=== PATIENT | female | born 1970 | race Caucasian/White ===

== ENCOUNTER 2021-06-14 22:53 | Observation (INO) | payer MEDICAID ==
[~2021-06-14] VITALS: Ht 154.9 cm; Wt 92.4 kg
[2021-06-15] MEDS ORDERED: ACETAMINOPHEN 500 MG TAB (TYLENOL) PO PRN (02:45)
[2021-06-15] MEDS ORDERED: clonazePAM 0.5 MG (KlonoPIN) TAB PO ONE (02:45)
[2021-06-15] MEDS ORDERED: ONDANSETRON 4 MG/2 ML (SDV) Z0FRAN ONE (08:44)
[2021-06-15] MEDS ORDERED: clonazePAM 0.5 MG (KlonoPIN) TAB PO SCH (09:00)
[2021-06-15] MEDS ORDERED: meTOproloL SUCCINATE 50 MG (TOPROL XL) TAB PO SCH (09:00)
[2021-06-15] MEDS ORDERED: DIVALPROEX 250 MG DELAYED RELEASE (DEPAKOTE) TAB PO SCH ×2 (09:00→21:00)
[2021-06-15] MEDS ORDERED: PANTOPRAZOLE 40 MG (PROTONIX) TAB PO SCH (09:00)
[2021-06-15] MEDS ORDERED: ASPIRIN E.C. 81 MG (ECOTRIN) TAB PO SCH (09:00)
[2021-06-15] MEDS ORDERED: ONDANSETRON 4 MG/2 ML (SDV) Z0FRAN IV PRN (10:15)
[2021-06-15] MEDS ORDERED: ONDANSETRON 4 MG (ZOFRAN) ORAL DISSOLVE TAB PO PRN (10:15)
[2021-06-15] MEDS ORDERED: ANTACID SUSP 30 ML UDC (MYLANTA) PO PRN (10:15)
[2021-06-15] MEDS ORDERED: MELATONIN 3 MG TABLET PO PRN (10:15)
[2021-06-15] MEDS ORDERED: diphenhydrAMINE 25 MG TAB (BENADRYL) PO PRN (10:15)
[2021-06-15] MEDS ORDERED: polyethylene glycoL POWDER 17 GM (MIRALAX) PACK PO PRN (10:15)
[2021-06-15] MEDS: SUCRALFATE 1 GM (CARAFATE) TAB PO SCH ×2 (11:27→19:13)
[2021-06-15] MEDS ORDERED: LORA10TA7 PO (14:10)
[2021-06-15] MEDS ORDERED: ACET325C7 PO (14:10)
[2021-06-15] MEDS ORDERED: NYST1POW22 TOP (14:10)
[2021-06-15] MEDS ORDERED: DOCU100C37 PO (14:10)
[2021-06-15] MEDS ORDERED: VENL75CA93 PO (14:10)
[2021-06-15] MEDS ORDERED: DIVA-21 PO (14:10)
[2021-06-15] MEDS ORDERED: OLAN20TA34 PO (14:10)
[2021-06-15] MEDS ORDERED: MAGN400O7 PO (14:10)
[2021-06-15] MEDS ORDERED: MAG-86 PO (14:10)
[2021-06-15] MEDS ORDERED: CLON0.5T4 PO (14:10)
[2021-06-15] MEDS ORDERED: BISA10SU8 RC (14:10)
[2021-06-15] MEDS ORDERED: DIVA250T PO (14:10)
[2021-06-15] MEDS ORDERED: [UNRECOGNIZED DRUG - CODE] PO (14:10)
[2021-06-15] MEDS ORDERED: MELO15TA39 PO (14:10)
[2021-06-15] MEDS ORDERED: POTA10TA37 PO (14:10)
[2021-06-15] MEDS ORDERED: FURO20TA4 PO (14:10)
[2021-06-15] MEDS ORDERED: LEVO150T6 PO (14:15)
--- NOTE | 2021-06-15 14:59 | History & Physical-Hospitalist ---
History of Present Illness HPI/Chief Complaint Kirsty Quezada is a 50 year old female with PMH schizophrenia, autism, hearing impaired, hypothyroidsism, seizure disorder, who presented with chest pain. She is currently having chest pain upon my examination. She has just finished eating breatkfast. She also feels short of breath. She feels nauseous. She is not having any fevers or cough. Source: patient Exam Limitations: physical impairment (hearing impaired) Date Seen 06/15/21 Time Seen by a Provider: 08:35 Attending Physician Mk Suarez MD PCP No,Local Physician Referring Physician Date of Admission Jun 15, 2021 at 01:59 Home Medications & Allergies Home Medications Reviewed patient Home Medication Reconciliation performed by pharmacy medication reconciliations engine test cell technician and/or nursing. Patients Allergies have been reviewed. Allergies Allergies Coded Allergies azithromycin (Verified Allergy, Unknown, 06/15/21) lithium (Verified Allergy, Unknown, 06/15/21) Past Cukkuuu-Wxnwwg-Bwhigz Hx Patient Social History Tobacco Use?: No Smoking Status: Never a Smoker Smokeless Tobacco Frequency: Never a User Use of E-Cig and/or Vaping dev: No Substance use?: No Alcohol Use?: No Pt feels they are or have been: Unable to obtain Current Status Advance Directives: Unable to obtain Communicates: Gestures, Points Preferred Spoken Language: Danish Sensory deficits: Speech impairment Past Medical History Seizure Disorder Hypothyroidsim Schizophrenia Family Medical History No Pertinent Family Hx Review of Systems Constitutional: no symptoms reported EENTM: no symptoms reported Respiratory: short of breath Cardiovascular: chest pain Gastrointestinal: nausea Genitourinary: no symptoms reported Musculoskeletal: no symptoms reported Skin: no symptoms reported Psychiatric/Neurological: No Symptoms Reported Physical Exam Physical Exam Vital Signs Vital Signs - First Documented 06/15/21 06/15/21 06/15/21 02:00 02:03 07:41 Temp 36.3 Pulse 91 Resp 18 B/P (MAP) 143/103 Pulse Ox 98 O2 Delivery Room Air Capillary Refill : Height, Weight, BMI Height: '" Weight: lbs. oz. kg; 38.50 BMI Method: General Appearance: No Apparent Distress, Anxious, Obese HEENT: PERRL/EOMI, Pharynx Normal Neck: Normal Inspection, Supple Respiratory: Lungs Clear, Normal Breath Sounds, No Respiratory Distress Cardiovascular: Regular Rate, Rhythm, No Edema, No Murmur Gastrointestinal: Normal Bowel Sounds, Non Tender, Soft Extremity: Normal Inspection, Non Tender, No Pedal Edema Neurologic/Psychiatric: Alert Skin: Normal Color, Warm/Dry Results Results/Procedures Labs Patient resulted labs reviewed. Assessment/Plan Admission Diagnosis Chest pain Admission Status: Observation Assessment and Plan Chest pain Possible atrial fibrillation Possible GERD Troponin remains normal EKG in chart with AFib Cadriology consulted Started on ASA and Metoprolol Echo with normal EF Started on PPI and Carafate Seizure disorder Schizophrenia Autism Hypothyroidism Hearing impaired Continue home meds Diagnosis/Problems Diagnosis/Problems (1) Chest pain Status: Acute TALIB DEAN MD Jun 15, 2021 14:59
[2021-06-15] MEDS ORDERED: LISI10TA25 PO (15:18)
--- NOTE | 2021-06-15 17:01 | Consultation-Cardiology ---
HPI-Cardiology Cardiology Consultation Date of Consultation 06/15/21 Date of Admission Time Seen by Provider: 08:00 Indication: Chest pain HPI 50 years old lady who was unable to provide any history, was transferred to our hospital for chest pain, on my evaluation she describes some discomfort in the chest and questionable reflux. Also reporting shortness of breath. She has hi story of schizophrenia, seizure disorder, autism and hypothyroidism. She denied any active pain at this time, EKG and cardiac enzymes were negative Home Medications & Allergies Allergies: Coded Allergies: azithromycin (Verified Allergy, Unknown, 06/15/21) lithium (Verified Allergy, Unknown, 06/15/21) Home Medication List Reviewed: Yes [id number]-[id number] Hx Patient Social History Smoking Status: Never a Smoker Alcohol Use?: No Past Medical History Discussed below Family Medical History Significant Family History: No Pertinent Family Hx Family Medical Hx Noncontributory Review of Systems-General Review of Systems Constitutional: no symptoms reported, other (As described per history of present illness) EENTM: no symptoms reported Respiratory: see HPI, cough, dyspnea on exertion; No hemoptysis, No orthopnea, No phlegm; short of breath; No stridor, No wheezing, No other Cardiovascular: see HPI, chest pain; No edema, No Hx of Intervention, No pa lpitations, No syncope, No vascular heart diseas, No other Gastrointestinal: nausea Genitourinary: no symptoms reported Musculoskeletal: no symptoms reported Skin: no symptoms reported Psychiatric/Neurological: No Symptoms Reported Reviewed Test Results Reviewed Test Results Lab Laboratory Tests Test 06/15/21 05:16 Range/Units Troponin I < 0.028 <0.028 NG/ML Physical Exam Physical Exam Vital Signs Vital Signs - First Documented 06/15/21 06/15/21 06/15/21 02:00 02:03 07:41 Temp 36.3 Pulse 91 Resp 18 B/P (MAP) 143/103 Pulse Ox 98 O2 Delivery Room Air Capillary Refill : Height, Weight, BMI Height: '" Weight: lbs. oz. kg; 38.50 BMI Method: General Appearance: No Apparent Distress, Anxious, Obese HEENT: PERRL/EOMI, Pharynx Normal Neck: Normal Inspection, Supple Respiratory: Lungs Clear, Normal Breath Sounds, No Respiratory Distress Cardiovascular: Regular Rate, Rhythm, No Edema, No Murmur Gastrointestinal: Normal Bowel Sounds, Non Tender, Soft Extremity: Normal Inspection, Non Tender, No Pedal Edema Neurologic/Psychiatric: Alert Skin: Normal Color, Warm/Dry A/P-Cardiology Assessment/Plan Chest pain, atypical in presentation, cardiac enzymes and EKG were negative. Probably noncardiac pain. Started on PPI. Echocardiogram was done showing normal LV size and systolic function with no significant abnormality History of schizophrenia and autism. Hypothyroidism. Okay for discharge from cardiology standpoint and follow-up as an outpatient RADHA LATIF MD Jun 15, 2021 17:01
[2021-06-15] MEDS ORDERED: PANT40TA52 PO (17:44)
[2021-06-15] MEDS ORDERED: ASPI-1238 PO (17:44)
[2021-06-15] MEDS ORDERED: SUCR1TAB PO (17:44)
[2021-06-15] MEDS ORDERED: METO50TA7 PO (17:44)
[2021-06-15] MEDS ORDERED: MILK OF MAGNESIA 400 MG/5 ML 30 ML UDC PO SCH (21:00)
[2021-06-16] MEDS ORDERED: LORATADINE (CLARITIN) 10 MG TAB PO SCH (09:00)
[2021-06-16] MEDS ORDERED: FUROSEMIDE 20 MG (LASIX) TAB PO SCH (09:00)
[2021-06-16] MEDS ORDERED: OLANZapine 5 MG (ZyPREXA) TAB PO SCH (09:00)
[2021-06-16] MEDS ORDERED: NON-FORMULARY MEDICATION 1 EA EA (Olanzapine 20 MG) PO SCH (09:00)
[2021-06-16] MEDS ORDERED: VENlafaxine XR 75 MG (EFFEXOR XR) CAP PO SCH (09:00)
[2021-06-16] MEDS ORDERED: LEVOTHYROXINE 150 MCG (LEVOTHROID) TAB PO SCH (12:00)
--- NOTE | 2021-06-18 10:54 | Physician Query-Final Dx ---
Final Diagnosis Give Final Diagnosis Please give Final Diagnosis GLORY CHAMBERS Jun 18, 2021 10:54
== END 2021-06-15 19:00 | disposition home or self-care (01) ==
LOC: CSD 06-15 01:59
PROVIDERS: ADMIT Internal Medicine; ATTEND Internal Medicine
DX: R07.9 Chest pain, unspecified (principal); G40.909 Epilepsy, unspecified, not intractable, without status epilepticus; F84.0 Autistic disorder; F20.9 Schizophrenia, unspecified; E03.9 Hypothyroidism, unspecified
CPT/HCPCS: 36415; 84484; 93005; 93306